=== PATIENT | male | born 1960 | race Caucasian/White ===

== ENCOUNTER 2018-06-13 23:01 | Emergency (ER) | payer OTHER ==
[~2018-06-13] VITALS: Ht 182.9 cm; Wt 97.5 kg
[2018-06-13 23:36] LABS: ABSOLUTE NEUTROPHILS 4.5 thou/uL (1.4-8.2); BASOPHILS 0.8 % (0.0-2.0); HEMATOCRIT 41.5 % (42.0-52.0); HEMOGLOBIN 14.3 gm/dL (14.0-18.0); LYMPHOCYTES 23.6 % (24.0-44.0); MCH 31.2 pg (26.0-34.0); MCHC 34.6 g/dL (28.0-37.0); MCV 90.3 fL (80.0-100.0); MONOCYTES 9.6 % (1.0-8.0); PLATELET COUNT 247 thou/uL (150-400); RBC 4.59 mil/uL (4.50-6.00); RDW 12.8 % (10.5-14.5)
[2018-06-13 23:43] LABS: CALCIUM 9.6 mg/dL (8.5-10.1); CREATININE 1.1 mg/dL (0.7-1.3); POTASSIUM 3.7 mmol/L (3.5-5.1)
[2018-06-14] MEDS ORDERED: FLUCELVAX60 MCG/0.4 IM (01:15)
[2018-06-14] MEDS ORDERED: KEPPRA750 MG PO (01:15)
[2018-06-14 02:21] LABS: URINE BILIRUBIN NEGATIVE (Negative); URINE BLOOD NEGATIVE (Negative); URINE CLARITY CLEAR; URINE COLOR YELLOW; URINE GLUCOSE-RANDOM* NEGATIVE (Negative); URINE KETONES NEGATIVE (Negative); URINE LEUKOCYTES-REFLEX NEGATIVE (Negative); URINE NITRITE-REFLEX NEGATIVE (Negative); URINE PROTEIN (DIPSTICK) NEGATIVE (Negative); URINE UROBILINOGEN 0.2 E.U./dl (0.2-1.0)
[2018-06-14 02:29] LABS: AMP/METHAMP Negative (Negative); BARBITURATES Negative (Negative); BENZODIAZEPINES Negative (Negative); COCAINE Negative (Negative); METHADONE Negative (Negative); OPIATES Negative (Negative); PCP Negative (Negative)
== END 2018-06-14 07:12 | disposition home or self-care (01) ==
LOC: ER 23:01
PROVIDERS: Emergency Medicine
DX: R41.0 Disorientation, unspecified (principal)

== ENCOUNTER 2019-01-03 10:53 | Emergency (ER) | payer OTHER ==
[~2019-01-03] VITALS: Ht 182.9 cm; Wt 77.1 kg
[~2019-01-03 10:53] MED LIST: FLUCELVAX60 MCG/0.4 IM; KEPPRA750 MG PO
[2019-01-03] MEDS ORDERED: UNICOMPLEX M TA1 TA1 PO (11:14)
[2019-01-03 11:45] LABS: ABSOLUTE NEUTROPHILS 4.1 thou/uL (1.4-8.2); BASOPHILS 1.2 % (0.0-2.0); EOSINOPHILS 1.9 % (0.0-3.0); HEMATOCRIT 43.7 % (42.0-52.0); HEMOGLOBIN 14.7 gm/dL (14.0-18.0); LYMPHOCYTES 14.8 % (24.0-44.0); MCH 30.9 pg (26.0-34.0); MCHC 33.7 g/dL (28.0-37.0); MCV 91.7 fL (80.0-100.0); MONOCYTES 11.7 % (1.0-8.0); PLATELET COUNT 255 thou/uL (150-400); POLYS 70.4 % (36.0-66.0); RBC 4.77 mil/uL (4.50-6.00); WBC 5.9 thou/uL (4.0-11.0)
[2019-01-03 11:55] LABS: ANION GAP 9 mmol/L (7-16); BUN 14 mg/dL (7-18); CALCIUM 9.6 mg/dL (8.5-10.1); CHLORIDE 104 mmol/L (98-107); CO2 27 mmol/L (21-32); CREATININE 0.9 mg/dL (0.7-1.3); GLUCOSE 101 mg/dL (74-106); POTASSIUM 3.9 mmol/L (3.5-5.1); SODIUM 140 mmol/L (136-145)
[2019-01-03 12:01] LABS: ALBUMIN 3.8 g/dL (3.4-5.0); SALICYLATE < 2.8 mg/dL (2.8-20.0); SGOT 24 U/L (15-37); SGPT 23 U/L (30-65); TOTAL BILIRUBIN 0.9 mg/dL (<0.1-1.0)
[2019-01-03 12:18] LABS: URINE BILIRUBIN NEGATIVE (Negative); URINE BLOOD NEGATIVE (Negative); URINE CLARITY CLEAR; URINE COLOR YELLOW; URINE GLUCOSE-RANDOM* NEGATIVE (Negative); URINE KETONES NEGATIVE (Negative); URINE LEUKOCYTES-REFLEX NEGATIVE (Negative); URINE NITRITE-REFLEX NEGATIVE (Negative); URINE PROTEIN (DIPSTICK) NEGATIVE (Negative); URINE UROBILINOGEN 0.2 E.U./dl (0.2-1.0)
[2019-01-03 12:29] LABS: AMP/METHAMP Negative (Negative); BARBITURATES Negative (Negative); BENZODIAZEPINES Negative (Negative); COCAINE Negative (Negative); METHADONE Negative (Negative); OPIATES Negative (Negative); PCP Negative (Negative)
[2019-01-03 13:07] VITALS: BP 127/74
== END 2019-01-03 13:07 | disposition home or self-care (01) ==
LOC: ER 10:53
PROVIDERS: Emergency Medicine
DX: R46.1 Bizarre personal appearance (principal); G40.909 Epilepsy, unspecified, not intractable, without status epilepticus; Z60.8 Other problems related to social environment

== ENCOUNTER 2020-12-06 21:19 | Emergency (ER) | payer OTHER ==
[~2020-12-06] VITALS: Ht 180.3 cm; Wt 81.7 kg
[~2020-12-06 21:19] MED LIST changes: +UNICOMPLEX M TA1 TA1 PO
[2020-12-06 22:31] LABS: BASOPHILS 0.6 % (0.0-2.0); EOSINOPHILS 0.9 % (0.0-3.0); HEMATOCRIT 39.8 % (42.0-52.0); HEMOGLOBIN 13.8 gm/dL (14.0-18.0); LYMPHOCYTES 22.8 % (24.0-44.0); MCH 31.5 pg (26.0-34.0); MCHC 34.7 g/dL (28.0-37.0); MCV 90.8 fL (80.0-100.0); MONOCYTES 8.4 % (1.0-8.0); PLATELET COUNT 233 thou/uL (150-400); POLYS 67.3 % (36.0-66.0); RBC 4.38 mil/uL (4.50-6.00); RDW 13.1 % (10.5-14.5); WBC 5.9 thou/uL (4.0-11.0)
[2020-12-06 22:35] LABS: CALCIUM 9.2 mg/dL (8.5-10.1); POTASSIUM 3.7 mmol/L (3.5-5.1)
[2020-12-06 22:41] LABS: ALBUMIN 3.6 g/dL (3.4-5.0); TOTAL BILIRUBIN 0.5 mg/dL (0.2-1.0); TOTAL PROTEIN 6.6 g/dL (6.4-8.2)
[2020-12-06 23:59] LABS: AMP/METHAMP Negative (Negative); BARBITURATES Negative (Negative); BENZODIAZEPINES Negative (Negative); COCAINE Negative (Negative); METHADONE Negative (Negative); OPIATES Negative (Negative); PCP Negative (Negative)
[2020-12-07] MEDS ORDERED: LEVETIRACETAM1000 MG PO (02:14)
[2020-12-07] MEDS ORDERED: IBUPROFEN 400400 M1 PO (02:20)
[2020-12-07 07:25] VITALS: BP 114/72
--- NOTE | 2020-12-07 16:01 | EKG ---
[address] [email or web address] [address] ELECTROCARDIOGRAM REPORT Name: DIOGENES BRANNON Room #: SHEILA Snow#: [id number] Admission: 12/06/20 Attend Phys: Discharge: 12/07/20 Date of : 62 Report #: [id number] [facility] ED Test Date: 2020-12-06 Test Time: 21:21:08 Pat Name: DIOGENES BRANNON Department: Room: Gender: M [employer]: MAVERICK : 1960 Requested By: Shamika Esposito Order Number: [id number] MD: Zhou Hall Measurements Intervals [place] Rate: 78 P: 67 WY: 163 QRS: 65 QRSD: 90 T: 34 QT: 368 QTc: 420 Interpretive Statements Sinus rhythm Normal tracing No previous ECG available for comparison Electronically Signed On 12-07-2020 16:01:32 CDT by Zhou Hall [email or web address] <ELECTRONICALLY SIGNED> By: Zhou Hall MD, [facility] 12/07/20 1601 20 20 Zhou Hall MD, FACC /EPI
== END 2020-12-07 07:26 | disposition short-term general hospital (02) ==
LOC: ER 21:19
PROVIDERS: Physician Assistant
DX: I67.1 Cerebral aneurysm, nonruptured (principal); Z20.822 Contact with and (suspected) exposure to COVID-19; R41.0 Disorientation, unspecified; G40.909 Epilepsy, unspecified, not intractable, without status epilepticus; Z88.5 Allergy status to narcotic agent; Z79.899 Other long term (current) drug therapy